=== PATIENT | male | born 1960 | race African-American/Black ===

== ENCOUNTER 2021-03-14 10:09 | Emergency (ER) | payer OTHER ==
[~2021-03-14 10:09] MED LIST: ALBUTEROL1.25 MG/3 INH; AMLODIPINE BESYL5 MG PO; HYDROCHLOROTHIA25 MG PO; LEVOFLOXACIN250 MG PO; PREDNISONE20 MG PO; ROBITUSSIN DM UD5 ML PO
[2021-03-14 12:58] LABS: HEMOGLOBIN 15.9 gm/dl (14.0-17.5); RED BLOOD COUNT 5.01 M/UL (4.20-5.50); WHITE BLOOD COUNT 7.5 K/UL (4.5-11.0)
[2021-03-14 13:15] LABS: BUN/CREATININE RATIO 14 (0-10)
[2021-03-14] MEDS ORDERED: PREDNISONE 10 M10 MG PO (14:53)
[2021-03-14] MEDS ORDERED: HYDROCODON-ACE1 EAC2 PO (14:54)
== END 2021-03-14 17:30 | disposition home or self-care (01) ==
LOC: ER1 10:09
PROVIDERS: Physician Assistant
DX: M10.9 Gout, unspecified (principal); I12.9 Hypertensive chronic kidney disease with stage 1 through stage 4 chronic kidney disease, or unspecified chronic kidney disease; N18.9 Chronic kidney disease, unspecified; Z86.19 Personal history of other infectious and parasitic diseases
CPT/HCPCS: 70450; 73562; 73630; 73700; 80053; 82550; 82553; 83874; 84484; 84550; 85025; 85652; 86140; 93971; 96374; 99284; J1100